=== PATIENT | male | born 1995 | race Caucasian/White ===

== ENCOUNTER 2016-09-28 20:26 | Emergency (ER) | payer OTHER ==
[2016-09-28 20:44] VITALS: BP 129/92; PULSE 69; TEMP 97.9; BMI 26.4
--- NOTE | 2016-09-28 21:56 | PDOC ---
History of Present Illness - History of Present Illness Initial Comments: 09/28/16 22:05 The patient is a 21 year old male with a PMHx anxiety brought by mother, presents to the ED after ingesting two 2 mg pills of Xanax to rule out overdose. Mother strongly believes that this was not a suicidal gesture. He may have been stressed from other issues. He currently has a therapist, and is being set up for a treatment program. Mother does not believe he ingested anything else. He has no complaints. <Alexus Abraham - Last Filed: 09/28/16 22:05> - General History Source: Parent(s) <Zana Forde - Last Filed: 09/29/16 02:58> - General Chief Complaint: Substance Abuse Stated Complaint: R/O O.D. Time Seen by Provider: 09/28/16 21:56 Past History <Alexus Abraham - Last Filed: 09/28/16 22:05> - Past Medical History Psychiatric Problems: Yes - Psycho/Social/Smoking Cessation Hx Suicidal Ideation: No Smoking History: Current every day smoker Number of Cigarettes Smoked Daily: 10 Information on smoking cessation initiated: No <Zana Forde - Last Filed: 09/29/16 02:58> - Past Medical History Allergies/Adverse Reactions: Allergies Allergy/AdvReac Type Severity Reaction Status Date / Time No Known Allergies Allergy Verified 09/28/16 20:39 Review of Systems - Review of Systems Comments:: 09/28/16 22:06 CONSTITUTIONAL: Absent: fever, no chills, no fatigue EYES: Absent: visual changes ENT: Absent: ear pain, no sore throat CARDIOVASCULAR: Absent: chest pain, no palpitations RESPIRATORY: Absent: cough, no SOB GI: Absent: abdominal pain, no nausea, no vomiting, no constipation, no diarrhea GENITOURINARY: Absent: dysuria, no frequency, no hematuria MUSCULOSKELETAL: Absent: back pain, no arthralgia, no myalgia SKIN: Absent: rash NEURO: Absent: headache <Alexus Abraham - Last Filed: 09/28/16 22:05> *Physical Exam - Vital Signs Last Vital Signs Temp Pulse Resp BP Pulse Ox 97.9 F 69 18 129/92 100 09/28/16 20:40 09/28/16 20:40 09/28/16 20:40 09/28/16 20:40 09/28/16 20:40 - Physical Exam Comments: 09/28/16 22:06 GENERAL: Well-appearing, well-nourished. No apparent distress. Somnolent. HEENT: Normocephalic, atraumatic. PERRL, EOM intact. No raccoon eyes. Not drooling. CARDIOVASCULAR: Normal S1, S2. Regular rate and rhythm. PULMONARY: Clear to auscultation bilaterally. No stridor. ABDOMEN: Soft, non-distended, non-tender. EXTREMITIES: Good motor tone. Normal ROM in all four extremities. No gross deformities. SKIN: Warm, dry. No rash NEUROLOGICAL: No focal neurological deficits. <Alexus Abraham - Last Filed: 09/28/16 22:05> - Vital Signs Last Vital Signs Temp Pulse Resp BP Pulse Ox 97.9 F 69 18 129/92 100 09/28/16 20:40 09/28/16 20:40 09/28/16 20:40 09/28/16 20:40 09/28/16 20:40 <Zana Forde - Last Filed: 09/29/16 02:58> Medical Decision Making - Medical Decision Making 09/29/16 02:52 Dr. Forde: The scribe's documentation has been prepared under my direction and personally reviewed by me in its entirery. I confirm that the note above accurately reflects all work, treatment, procedures, and medical decision making performed by me. patient hemodynamically stable. Mother present upon discharged. Mother will take pt to therapist later on today. <Zana Forde - Last Filed: 09/29/16 02:58> *DC/Admit/Observation/Transfer - Attestations Scribe Attestion: 09/28/16 22:07 Documentation prepared by Alexus Abraham, acting as medical claims analyst for Zana Forde DO. <Alexus Abraham - Last Filed: 09/28/16 22:05> - Discharge Dispostion Admit: No <Zana Forde - Last Filed: 09/29/16 02:58> Diagnosis at time of Disposition: Benzodiazepine (tranquilizer) overdose Qualifiers: Encounter type: initial encounter Injury intent: accidental or unintentional Qualified Code(s): T42.4X1A - Poisoning by benzodiazepines, accidental ( unintentional), initial encounter - Discharge Dispostion Disposition: HOME Condition at time of disposition: Stable - Referrals Referrals: Bo Pak MD [Primary Care Provider] - - Patient Instructions Printed Discharge Instructions: Benzodiazepines (Alternative Therapy) Additional Instructions: Please follow up with your scheduled appointments. REturn if any problems
== END 2016-09-29 03:37 | disposition home or self-care (01) ==
LOC: JER 20:26
DX: T42.4X1A Poisoning by benzodiazepines, accidental (unintentional), initial encounter (principal); F41.9 Anxiety disorder, unspecified; F17.210 Nicotine dependence, cigarettes, uncomplicated
CPT/HCPCS: 99281-25